=== PATIENT | male | born 1935 | race Caucasian/White ===

== ENCOUNTER → 2017-12-11 | Day surgery (SDC) | payer MEDICARE, OTHER ==
[~2017-12-11] MED LIST: ALLOPURINOL 10100 M1 PO; AMBIEN 5 MG TABL5 M1 PO; ASPIRIN325 PO; COREG6.25 MG PO; FLONASE 0.05%50 MCG NASAL; HYDRALAZINE 2525 MG PO; METAMUCIL FIBE3.4 GM PO; NORCO 5-325 TA1 EACH PO; PROTONIX40 M1 PO; RENAPLEX-D TAB1 EACH PO; SIMVASTATIN40 MG PO; SYNTHROID50 MCG PO
[2017-12-11 07:38] LABS: HEMATOCRIT 32.9 % (42.0-52.0); HEMOGLOBIN 11.3 gm/dL (14.0-18.0); MCH 32.1 pg (26.0-34.0); MCHC 34.5 g/dL (28.0-37.0); MCV 93.1 fL (80.0-100.0); MPV 7.1 fl. (7.2-11.1); RBC 3.53 mil/uL (4.50-6.00); RDW-CV 14.7 % (10.5-14.5); WBC 7.7 thou/uL (4.0-11.0)
[2017-12-11 07:47] LABS: CALCIUM 9.8 mg/dL (8.5-10.1); CREATININE 5.7 mg/dL (0.6-1.3); POTASSIUM 4.3 mmol/L (3.5-5.1)
--- NOTE | 2017-12-11 18:44 | EKG ---
[place] [address] ELECTROCARDIOGRAM REPORT Name: SABINE GARCIA Room: [facility]#: [id number] Admission: 12/11/17 Attend Phys: Josh Gallardo Discharge: Date of : 35 Report #: [id number] THIS REPORT FOR: //name// [facility] Test Date: 2017-12-11 Test Time: 07:35:21 Pat Name: SABINE GARCIA Department: Room: Gender: M Change Manager: : 1935 Requested By: Josh Gallardo Order Number: [id number] Reading MD: Edson Acevedo Measurements Intervals [place] Rate: 59 P: -44 NE: 251 QRS: -21 QRSD: 98 T: 54 QT: 447 QTc: 443 Interpretive Statements Sinus rhythm Prolonged NE interval Borderline left axis deviation No previous ECG available for comparison Electronically Signed On 12-11-2017 18:43:46 CDT by Edson Acevedo [email or web address] <ELECTRONICALLY SIGNED> By: Edson Acevedo MD, [facility] 12/11/17 1843 0735 0735 Edson Acevedo MD, FACC /EPI
--- NOTE | 2018-01-03 09:18 | OP ---
[facility] [address] [place] [address] OPERATIVE REPORT Name: SABINE GARCIA Room: [facility]#: [id number] Admission: 12/11/17 Attend Phys: Josh Gallardo Discharge: Date of : 35 Report #: [id number] THIS REPORT FOR: //name// CC: Mickey Gallardo DATE OF SERVICE: 12/11/2017 PREOPERATIVE DIAGNOSIS: End-stage renal disease. POSTOPERATIVE DIAGNOSIS: End-stage renal disease. PROCEDURE: 1. Laparoscopic peritoneal dialysis catheter placement. 2. Laparoscopic omentopexy. SURGEON: Josh Gallardo MD ANESTHESIA: General. ESTIMATED BLOOD LOSS: Minimal. DESCRIPTION OF PROCEDURE: After informed consent was obtained, the patient was brought to the operating room and placed supine. SCDs were placed and working, preoperative antibiotics were administered, general anesthesia was induced. The abdomen was prepped and draped in the usual sterile fashion. A 5 mm incision was made in the left upper quadrant. A 5 mm trocar was placed under direct vision. Pneumoperitoneum was established. A left-sided 5 mm port was placed. An 8 mm left rectus sheath port was placed. A dialysis catheter was placed through the 8 mm port. It was then tunneled to the left upper quadrant of the abdomen. It flushed easily with 650 mL of heparinized normal saline. It then drained easily as well. Omentopexy was then performed by using a 2-0 Vicryl suture. This was placed through the left upper quadrant with a needle passer. It was placed through the omentum and then back up to the abdominal wall and tied down. The ports were removed under direct vision. The skin was closed with 4-0 Monocryl. Sterile dressings were applied. COMPLICATIONS: [place] [address] OPERATIVE REPORT Name: SABINE GARCIA Room: [facility]#: [id number] Admission: 12/11/17 Attend Phys: Josh Gallardo Discharge: Date of : 35 Report #: [id number] DISPOSITION: The patient was taken to recovery in satisfactory condition. <ELECTRONICALLY SIGNED> By: Josh Gallardo MD 01/03/18917 1001 [id number] Gallardo MD /nt
== END | disposition home or self-care (01) ==
LOC: M.SUR 07:18
PROVIDERS: Surgery
DX: I12.0 Hypertensive chronic kidney disease with stage 5 chronic kidney disease or end stage renal disease (principal); N18.6 End stage renal disease; Z79.82 Long term (current) use of aspirin; Z79.899 Other long term (current) drug therapy; Z88.8 Allergy status to other drugs, medicaments and biological substances; Z79.891 Long term (current) use of opiate analgesic; Z98.890 Other specified postprocedural states